=== PATIENT | male | born 1955 | race Caucasian/White ===

== ENCOUNTER → 2017-03-26 | Day surgery (SDC) | payer OTHER ==
[~2017-03-26] MED LIST: ACETAMINOPHEN/HYDROcodone 325 MG/5 MG TAB ONE; BUPIVACAINE/EPINEPHRINE 0.5% PF 30 ML VIAL INFIL ONE; EPINEPHrine HCL (1:1000) 1 MG/ML VIAL OTHER ONE; KETOROLAC TROMETHAMINE 30 MG/ML (IVP) VIAL IV PUSH ONE; LACTATED RINGER'S 1000 ML INJ 1,000 ML ONE; MIDAZOLAM HCL 2 MG/2 ML VIAL ONE; ONDANSETRON HCL 4 MG/2 ML VIAL IV PUSH ONE; PROPOFOL 200 MG/20 ML AMP IV ONE; ceFAZolin INJ 1,000 MG VIAL ONE
--- NOTE | 2017-03-29 08:35 | MP ---
cc: BINH COTA DATE OF SURGERY 03/26/2017 PREOPERATIVE DIAGNOSIS Right knee medial and lateral meniscus tear. POSTOPERATIVE DIAGNOSIS Right knee medial and lateral meniscus tear. PROCEDURE Right knee arthroscopic partial medial and lateral meniscectomy. SURGEON Dr. Binh Cota ANESTHESIA General. ESTIMATED BLOOD LOSS Less than 10 cc TOURNIQUET TIME 0 minutes. COMPLICATIONS None. JUSTIFICATION The patient is a 61-year-old male who injured the right knee subsequently resulting in pain in regards to his condition and failure of conservative treatment. Clinical exam as well as MRI confirmed the above-named findings. The patient was counseled as to the risks, benefits and alternatives to the above-named proposed surgical procedure. He did wish to proceed with surgery. PROCEDURE IN DETAIL Written consent was obtained. The patient was identified by name, taken to the operating room, placed in supine position. General anesthesia was administered as well as 1 gram of IV Ancef. The right thigh was carefully placed in a well-padded leg rhodes, the right lower extremity prepped and draped using isopropyl alcohol, Hibiclens solution and ChloraPrep solution. After a time-out was performed, a medial and lateral parapatellar arthroscopic portal was established. The patellofemoral joint revealed minimal chondromalacia. Along the undersurface of the patella, the medial compartment revealed an undersurface complex tear of the posterior horn of the medial meniscus. An arthroscopic shaver was introduced into the medial compartment to perform partial medial meniscectomy. Meniscal rim was probed and noted to be stable. Minimal chondromalacia of the medial compartment was noted. The intercondylar notch revealed the anterior and posterior cruciate ligaments to be intact. The lateral compartment revealed a large unstable bucket-handle tear of the lateral meniscus extending from the anterior horn into the mid-body. An arthroscopic shaver was then introduced into the lateral compartment to perform a partial lateral meniscectomy. The meniscal rim was probed and noted to be stable after the mensicectomy. At the conclusion of the procedure 30 cc of 0.5% Marcaine with epinephrine was injected into the knee joint. The arthroscopic portals were closed with 3-0 Prolene. Sterile dressings were applied. The patient tolerated the procedure well with no intraoperative complications noted. MD BRANDYN Azevedo/VINNIE /10:12 AM /8:21 AM
== END | disposition home or self-care (01) ==
LOC: ESDC 08:41
PROVIDERS: ATTEND Orthopaedic Surgery Sports Medicine
DX: S83.231A Complex tear of medial meniscus, current injury, right knee, initial encounter (principal); S83.251A Bucket-handle tear of lateral meniscus, current injury, right knee, initial encounter
CPT/HCPCS: 01400; 29880; J0171; J0690; J1885; J2250; J2405; J3010; J7120